=== PATIENT | female | born 1945 | race Caucasian/White ===

== ENCOUNTER 2018-09-21 10:24 | Day surgery (SDC) | payer MEDICARE, BC ==
[2018-09-21] MEDS ORDERED: Sodium Chloride 0.9% 10 ML Syringe FLUSH PRN (10:30)
[2018-09-21] MEDS ORDERED: Lactated Ringers 1,000 ML IV SCH (10:30)
[2018-09-21] MEDS ORDERED: Moxifloxacin 0.5% Ophth Soln 3 ML Bottle EYELF SCH (10:30)
[2018-09-21] MEDS: Cyclopentolate 1% Opth Soln 2 ML Bottle EYELF SCH ×3 (10:39→10:59)
[2018-09-21] MEDS: Phenylephrine 10% Ophth Soln 5 ML Bot EYELF SCH ×3 (10:44→11:09)
[2018-09-21] MEDS ORDERED: Water For Irrigation,Sterile 1,500 ML Container IRR ONE (12:18)
[2018-09-21] MEDS ORDERED: Balanced Salt Solution Ophth Irrig 15 ML Bottle EYELF ONE (12:19)
[2018-09-21] MEDS ORDERED: EPINEPHrine 1 MG/ML SDV ONE (12:19)
[2018-09-21] MEDS ORDERED: Carbachol 0.01% Intraocular 1.5 ML Vial EYELF ONE (12:19)
[2018-09-21] MEDS ORDERED: Balanced Salt Solution Plus Ophth Irrig 500 ML Bottle IOCULAR ONE (12:19)
[2018-09-21] MEDS ORDERED: Dexamethasone/Neomycin/Polymyxin B Ophth Oint 3.5 GM Tube EYELF ONE (12:20)
[2018-09-21] MEDS ORDERED: Hyaluronate Sodium 1% 0.85 ML Syringe IOCULAR ONE (12:20)
[2018-09-21] MEDS ORDERED: Lidocaine 2% with EPINEPHrine 1:100,000 20 ML MDV INJECT ONE (12:20)
[2018-09-21] MEDS ORDERED: Lidocaine 1% 10 ML MDV INJECT ONE (12:20)
[2018-09-21] MEDS ORDERED: Tetracaine HCl/PF 0.5% 4 ML Bottle EYEBOTH ONE (12:21)
--- NOTE | 2018-09-22 10:01 | OR ---
DATE OF SURGERY: 09/21/2018 SURGEON: Yoseph Red MD PREOPERATIVE DIAGNOSIS: Cataract, left eye. POSTOPERATIVE DIAGNOSIS: Cataract, left eye. OPERATION PERFORMED: Phacoemulsification with posterior chamber lens insertion, left eye. HISTORY: The patient presents at this time with an increasing amount of difficulty seeing street signs. The vision in the left eye is 20/60. 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 FINDINGS: The patient was taken to the operating room where appropriate anesthesia, sedation and monitoring were provided. A retrobulbar block was given on the left side. The eye was massaged and was found to be appropriately soft. The eye and eyelids were then prepped and draped in the usual sterile manner. A lid speculum was placed. A micro sharp blade was used to enter the anterior chamber inside the limbus inferior-temporally. Xylocaine was irrigated into the eye at this site. Healon was irrigated into the eye through this site. Then using a 2.85 mm corneal blade an entry was made into the anterior chamber just inside the limbus temporally. Healon was again irrigated into the eye. Then using a cystitome, the anterior capsulorrhexis was created. The lens nucleus was hydrodissected using a 27 gauge cannula and balanced salt solution. The phacoemulsification unit was introduced through the temporal site and the [place] spatula through the inferior temporal site. In so doing, the lens nucleus was phacoemulsified. The cortical fragments of the lens were removed using the irrigation aspiration unit. The posterior capsule was polished. Healon was irrigated into the eye. The posterior chamber lens was inserted and rotated into position inside the capsular bag. The Healon was irrigated out of the eye. Miostat was irrigated into the eye and the pupil rounded nicely. A single interrupted 10-0 Nylon suture was placed through the temporal corneal incision site. Balanced salt solution was irrigated into the eye. The wound was tested and found to be tight. Maxitrol ointment was placed into the patient's left eye. The eyelids were closed and an eye patch and echeverria shield were placed. The patient left the operating room in good condition. /[id number]/MODL
== END 2018-09-21 13:00 | disposition home or self-care (01) ==
LOC: KA.SDS 10:24
PROVIDERS: ATTEND Ophthalmology
DX: H25.812 Combined forms of age-related cataract, left eye (principal)
CPT/HCPCS: 00142; A9270-GY; C1780; J0171; J2001; J7120

== ENCOUNTER 2020-01-05 23:29 | Emergency (ER) | payer MEDICARE, BC ==
[2020-01-05] MEDS ORDERED: Labetalol 100 MG/20 ML MDV IVPUSH ONE (23:56)
--- NOTE | 2020-01-06 00:02 | EDM.PDOC ---
ED HPI GENERAL MEDICAL PROBLEM - General Chief Complaint: General Stated Complaint: hypertension Time Seen by Provider: 01/05/20 23:42 Source of Information: Reports: Patient, Significant Other History Limitations: Reports: No Limitations - History of Present Illness INITIAL COMMENTS - FREE TEXT/NARRATIVE: Patient presents with high blood pressure and "fluttering" in her chest. She says the fluttering started between 1999 and 2100, probably closer to 2100. When she went to bed it seemed to get a little more intense; after a bit she checked her blood pressure and saw that it was 210/110. She normally doesn't have high blood pressure but yesterday at the chiropractor it was checked and high too. She doesn't take any antihypertensive. She tells me that the past three nights she has had a pressure in her chest that starts when she lays down in bed and lasts about one minute. Tonight she didn't have the pressure but had fluttering. She denies any pressure when she is up and active. - Related Data Allergies Allergy/AdvReac Type Severity Reaction Status Date / Time No Known Drug Allergies Allergy Cannot Verified 01/05/20 23:30 Remember Home Meds: Home Meds *Colon Care 1 tab PO DAILY 09/17/18 [History] Ascorbic Acid [Vitamin C] 1,000 mg PO DAILY 09/17/18 [History] Calcium Carbonate [Calcium] 1,000 mg PO DAILY 09/17/18 [History] Cholecalciferol (Vitamin D3) [Vitamin D3] 1 tab PO DAILY 09/17/18 [History] Digestive 8/L.acidoph/Pectin [Digestive Enzymes Tablet] 1 tab PO TIDMEALS 09/17/18 [History] Flaxseed Oil [Flaxseed] 1,000 mg PO DAILY 09/17/18 [History] Lactobacillus 3/Fos/Pantethine [Probiotic & Acidophilus] 1 cap PO DAILY 09/17/18 [History] Multivitamin with Minerals [Multivitamins with Minerals] 1 tab PO DAILY 09/17/18 [History] Phytonadione [Vitamin K] 100 mcg PO DAILY 09/17/18 [History] Past Medical History HEENT History: Reports: Cataract, Impaired Vision Cardiovascular History: Reports: None Respiratory History: Reports: None Gastrointestinal History: Reports: None Genitourinary History: Reports: None SHAREPOINT ADMIN History: Reports: Musculoskeletal History: Reports: None Neurological History: Reports: None Psychiatric History: Reports: None Endocrine/Metabolic History: Reports: None Hematologic History: Reports: None Immunologic History: Reports: None Oncologic (Cancer) History: Reports: Breast Dermatologic History: Reports: None - Infectious Disease History Infectious Disease History: Reports: Mumps - Past Surgical History Cardiovascular Surgical History: Reports: None Respiratory Surgical History: Reports: None GI Surgical History: Reports: None Female Surgical History: Reports: Breast Biopsy, Mastectomy Neurological Surgical History: Reports: None Musculoskeletal Surgical History: Reports: None Oncologic Surgical History: Reports: Biopsy of Breast, Mastectomy Other Oncologic Surgeries/Procedures: left side Dermatological Surgical History: Reports: None Social & Family History - Caffeine Use Caffeine Use: Reports: Coffee, Tea ED ROS GENERAL - Review of Systems Review Of Systems: See Below Constitutional: Denies: Fever, Chills, Malaise, Weakness, Diaphoresis HEENT: Denies: Ear Pain, Throat Pain, Vision Change Respiratory: Denies: Shortness of Breath, Cough Cardiovascular: Reports: Blood Pressure Problem (just recently). Denies: Chest Pain, Lightheadedness, Syncope GI/Abdominal: Denies: Abdominal Pain, Diarrhea, Nausea, Vomiting : Denies: Dysuria, Flank Pain Musculoskeletal: Denies: Neck Pain, Shoulder Pain, Arm Pain, Back Pain, Hand Pain, Leg Pain Skin: Denies: Cyanosis, Jaundice, Mottled, Pallor, Diaphoresis Neurological: Denies: Confusion, Dizziness, Headache, Seizure, Syncope, Trouble Speaking, Difficulty Walking Psychiatric: Denies: Agitation, Anxiety, Confusion ED EXAM, GENERAL - Physical Exam Exam: See Below Exam Limited By: No Limitations General Appearance: Alert, WD/WN, No Apparent Distress Eye Exam: Bilateral Eye: EOMI, Normal Inspection, PERRL Ears: Normal External Exam, Hearing Grossly Normal Nose: Normal Inspection, No Blood Throat/Mouth: Normal Inspection, Normal Lips, Normal Voice, No Airway Compromise Head: Atraumatic, Normocephalic Neck: Normal Inspection, Supple, Non-Tender, Full Range of Motion. No: Carotid Bruit Respiratory/Chest: No Respiratory Distress, Lungs Clear, Normal Breath Sounds, No Accessory Muscle Use Cardiovascular: Normal Peripheral Pulses, Regular Rate, Rhythm, No Murmur GI/Abdominal: Normal Bowel Sounds, Soft, Non-Tender, No Organomegaly, No Distention Back Exam: Normal Inspection, Full Range of Motion. No: CVA Tenderness (L), CVA Tenderness (R) Extremities: Normal Inspection, Normal Range of Motion Neurological: Alert, Oriented, Normal Cognition, No Motor/Sensory Deficits Psychiatric: Normal Affect, Normal Mood Skin Exam: Warm, Dry, Intact, Normal Color, No Rash Course - Vital Signs Last Recorded V/S: Last Vital Signs Temp 97.2 F 01/05/20 23:37 Pulse 63 01/06/20 00:30 Resp 13 01/06/20 00:30 BP 168/81 H 01/06/20 00:30 Pulse Ox 98 01/06/20 00:30 - Orders/Labs/Meds Orders: Active Orders 24 hr Category Date Time Status EKG Documentation Completion [RC] ASDIRECTED Care 01/05/20 23:41 Active Peripheral IV Care [RC] . DIRECTED Care 01/06/20 00:17 Active Sodium Chloride 0.9% [Saline Flush] Med 01/06/20 00:17 Active 10 ml FLUSH Q8HR PRN Peripheral IV Insertion Adult [OM.PC] Routine Oth 01/06/20 00:17 Ordered EKG 12 Lead [EK] Urgent Ther 01/05/20 23:40 Ordered Medication Orders Sodium Chloride (Saline Flush) 10 ml FLUSH Q8HR PRN PRN Reason: keep vein open Last Admin: 01/06/20 00:18 Dose: 10 ml Documented by: ANUP Labs: Laboratory Tests 01/05/20 01/05/20 01/05/20 Range/Units 23:59 23:59 23:59 WBC 6.46 (5.00-10.00) 10^3/uL RBC 4.91 (3.80-5.50) 10^6/uL Hgb 15.3 (12.0-16.0) g/dL Hct 45.6 (37.0-47.0) % MCV 92.9 H (82.0-92.0) fL MCH 31.2 H (27.0-31.0) pg MCHC 33.6 (32.0-36.0) g/dL RDW 13.5 (11.5-14.5) % Plt Count 312 (150-400) 10^3/uL MPV 9.3 (7.4-10.4) fL Immature Gran % (Auto) 0.2 (0.0-5.0) % Neut % (Auto) 60.4 (50.0-70.0) % Lymph % (Auto) 27.2 (20.0-40.0) % Jenkins % (Auto) 10.4 H (2.0-8.0) % Eos % (Auto) 1.5 (1.0-3.0) % Baso % (Auto) 0.3 (0.0-1.0) % Neut # (Auto) 3.90 (2.50-7.00) 10^3/uL Lymph # (Auto) 1.76 (1.00-4.00) 10^3/uL Jenkins # (Auto) 0.67 (0.10-0.80) 10^3/uL Eos # (Auto) 0.10 (0.10-0.30) 10^3/uL Baso # (Auto) 0.02 (0.00-0.10) 10^3/uL Immature Gran # (Auto) 0.01 (0.00-0.50) 10^3/uL Sodium 141 (136-145) mmol/L Potassium 4.2 (3.3-5.3) mmol/L Chloride 104 (98-115) mmol/L Carbon Dioxide 27.9 (21.0-32.0) mmol/L Anion Gap 13.3 (5-15) mmol/L BUN 18 (6-25) mg/dL Creatinine 0.83 (0.51-1.17) mg/dL Est Cr Clr Drug Dosing 51.35 mL/min Estimated GFR (MDRD) > 60 mL/min Glucose 105 H (75 - 99) mg/dL Calcium 9.9 (8.7-10.3) mg/dL Troponin I 0.05 (0.00-0.070) ng/mL Meds: Medications Generic Name Dose Route Start Last Admin Trade Name Freq PRN Reason Stop Dose Admin Sodium Chloride 10 ml 01/06/20 00:17 01/06/20 00:18 Saline Flush FLUSH 10 ml Q8HR PRN Administration keep vein open Discontinued Medications Generic Name Dose Route Start Last Admin Trade Name Freq PRN Reason Stop Dose Admin Labetalol HCl 20 mg 01/05/20 23:56 01/06/20 00:11 Normodyne IVPUSH 01/05/20 23:57 10 mg ONETIME ONE Administration Protocol - Re-Assessments/Exams Free Text/Narrative Re-Assessment/Exam: 01/06/20 01:05 EKG and labs okay. Patient feeling fine now. Discussed findings and recommendations with patient. She will try to see her PCP tomorrow, early next week at the latest, to recheck and to discuss possible long-term blood pressure management; also to consider stress test. Patient's blood pressure came down significantly on its own and some further after labetalol. Discharged to home in stable condition. Departure - Departure Time of Disposition: 00:54 Disposition: Home, Self-Care 01 Condition: Good Clinical Impression: Hypertension Qualifiers: Hypertension type: unspecified Qualified Code(s): I10 - Essential (primary) hypertension - Discharge Information Instructions: Hypertension, Adult, [id number] Referrals: Odalis Quiros RESIDENTIAL PROGRAM COORDINATOR [Primary Care Provider] - Forms: ED Department Discharge Additional Instructions: Call your PCP in the morning to set up appointment either tomorrow or early next week. If you don't get in tomorrow, check your blood pressure daily and record for your PCP. If it is higher than 160/90 begin the Lisinopril once a day. Return to ER as needed. Sepsis Event Note (ED) - Evaluation Sepsis Screening Result: No Definite Risk - Focused Exam Vital Signs: Vital Signs Temp Pulse Pulse Resp BP Pulse Ox 01/06/20 00:30 63 13 168/81 H 98 01/06/20 00:18 63 12 166/73 H 99 01/06/20 00:11 71 14 178/85 H 01/06/20 00:05 74 189/103 H 01/05/20 23:50 80 204/115 H 01/05/20 23:37 97.2 F 80 18 211/82 H 96 - My Orders Last 24 Hours: My Active Orders 01/05/20 23:40 EKG 12 Lead [EK] Urgent 01/05/20 23:41 EKG Documentation Completion [RC] ASDIRECTED 01/06/20 00:17 Peripheral IV Care [RC] . DIRECTED Sodium Chloride 0.9% [Saline Flush] 10 ml FLUSH Q8HR PRN Peripheral IV Insertion Adult [OM.PC] Routine - Assessment/Plan Last 24 Hours: My Active Orders 01/05/20 23:40 EKG 12 Lead [EK] Urgent 01/05/20 23:41 EKG Documentation Completion [RC] ASDIRECTED 01/06/20 00:17 Peripheral IV Care [RC] . DIRECTED Sodium Chloride 0.9% [Saline Flush] 10 ml FLUSH Q8HR PRN Peripheral IV Insertion Adult [OM.PC] Routine
[2020-01-06] MEDS ORDERED: Sodium Chloride 0.9% 10 ML Syringe FLUSH PRN (00:17)
[2020-01-06 00:29] LABS: ANION GAP 13.3 mmol/L (5-15); CHLORIDE,CL 104 mmol/L (98-115); SODIUM,NA 141 mmol/L (136-145)
== END 2020-01-06 01:10 | disposition home or self-care (01) ==
LOC: KA.ED 23:29
DX: I10 Essential (primary) hypertension (principal); Z79.899 Other long term (current) drug therapy
CPT/HCPCS: 80048; 84484; 85025; 93005; 96374; 99283-25; 99284; J3490

== ENCOUNTER 2023-08-05 16:13 | Emergency (ER) | payer MEDICARE, BC ==
[2023-08-05] MEDS ORDERED: Sodium Chloride 0.9% 10 ML Syringe FLUSH PRN (16:16)
[2023-08-05 16:27] LABS: BASOPHILS ABSOLUTE AUTO 0.03 10^3/uL (0.00-0.10); BASOPHILS PERCENT AUTO 0.4 % (0.0-1.0); EOSINOPHILS ABSOLUTE AUTO 0.05 10^3/uL (0.10-0.30); EOSINOPHILS PERCENT AUTO 0.7 % (1.0-3.0); HEMOGLOBIN 14.5 g/dL (12.0-16.0); IMMATURE GRAN ABSOLUTE AUTO 0.01 10^3/uL (0.00-0.50); IMMATURE GRAN PERCENT AUTO 0.1 % (0.0-5.0); LYMPHOCYTES ABSOLUTE AUTO 1.39 10^3/uL (1.00-4.00); LYMPHOCYTES PERCENT AUTO 18.4 % (20.0-40.0); MEAN CORPUSCULAR HEMOGLOBIN 30.7 pg (27.0-31.0); MEAN PLATELET VOLUME 9.2 fL (7.4-10.4); MONOCYTES ABSOLUTE AUTO 0.56 10^3/uL (0.10-0.80); MONOCYTES PERCENT AUTO 7.4 % (2.0-8.0); NEUTROPHILS ABSOLUTE AUTO 5.53 10^3/uL (2.50-7.00); PLATELET COUNT,PLT 286 10^3/uL (150-400); RED BLOOD CELL COUNT 4.73 10^6/uL (3.80-5.50); WHITE BLOOD CELL COUNT,WBC 7.57 10^3/uL (5.00-10.00)
[2023-08-05 16:43] LABS: ALBUMIN 3.85 g/dL (3.40-5.00); ANION GAP 18.5 mmol/L (5-15); BILIRUBIN TOTAL 0.3 mg/dL (0.2-1.0); CALCIUM 9.1 mg/dL (8.7-10.3); CREATININE 0.64 mg/dL (0.51-1.17); EST CRCL DRUG DOSING (CG) 52.88 mL/min; POTASSIUM,K 4.5 mmol/L (3.5-5.1); PROTEIN TOTAL,TP 7.2 g/dL (6.4-8.2)
[2023-08-05 17:26] VITALS: BP 180/90; PULSE 81
[2023-08-05] MEDS ORDERED: LORazepam 0.5 MG Tab PO ONE (17:26)
== END 2023-08-05 18:05 | disposition home or self-care (01) ==
LOC: KA.ED 16:13
DX: R07.89 Other chest pain (principal); Z79.899 Other long term (current) drug therapy
CPT/HCPCS: 71045; 80053; 83690; 84484; 85025; 93010; 99284; 99285; A9270-GY

== ENCOUNTER 2024-04-05 07:57 | Day surgery (SDC) | payer MEDICARE, BC ==
[2024-04-05] MEDS: Sodium Chloride 0.9% 10 ML Syringe FLUSH PRN (08:20)
[2024-04-05] MEDS: Lactated Ringers 1,000 ML IV SCH (08:20)
[2024-04-05] MEDS ORDERED: Propofol 200 MG/20 ML SDV ONE (08:46)
== END 2024-04-05 11:08 | disposition home or self-care (01) ==
LOC: KA.SDS 07:57
PROVIDERS: ATTEND Family Medicine
DX: Z12.11 Encounter for screening for malignant neoplasm of colon (principal); D12.6 Benign neoplasm of colon, unspecified; K64.8 Other hemorrhoids; K64.4 Residual hemorrhoidal skin tags; I10 Essential (primary) hypertension; E78.2 Mixed hyperlipidemia; J43.9 Emphysema, unspecified; J45.50 Severe persistent asthma, uncomplicated; F41.1 Generalized anxiety disorder; M81.0 Age-related osteoporosis without current pathological fracture; Z79.899 Other long term (current) drug therapy
CPT/HCPCS: 45380; J2704; J7120; 00811; 99100; J3490